=== PATIENT | female | born 1990 | race Two or more races ===

== ENCOUNTER 2018-04-21 08:50 | Outpatient (CLI) | payer OTHER | END 2018-04-21 09:47 | disposition home or self-care (01) | LOC: NST 08:50 | DX: Z34.83 Encounter for supervision of other normal pregnancy, third trimester (principal) ==

== ENCOUNTER 2018-04-24 12:47 | Inpatient (IN) | payer OTHER ==
[~2018-04-24] VITALS: Ht 152.4 cm; Wt 66.2 kg
== END 2018-04-28 13:18 | DRG 807 ==
LOC: OB/GYN 04-26 17:23 → LDR 04-26 17:23 → OB/GYN 04-26 19:07 → LDR 04-27 12:46 → OB/GYN 04-28 13:18
PROC: 10E0XZZ Delivery of Products of Conception, External Approach (ICD-10-PCS; principal; 2018-04-26)
PROC: 4A1HXCZ Monitoring of Products of Conception, Cardiac Rate, External Approach (ICD-10-PCS; 2018-04-26)
DX: O80 Encounter for full-term uncomplicated delivery (principal); Z37.0 Single live birth; Z3A.39 39 weeks gestation of pregnancy

== ENCOUNTER → 2024-07-31 | Emergency (ER) | payer OTHER ==
[~2024-07-31] VITALS: Ht 160 cm; Wt 49.4 kg
[~2024-07-31] MED LIST: IBUprofen 100 MG/5 ML-120ML ML PO STA
[2024-07-31 18:52] LABS: HEMATOCRIT 40.2 % (36.0-45.00); HEMOGLOBIN 13.4 g/dL (12.0-15.00); MEAN CELL VOLUME 89.4 fL (80.00-100.00); MEAN CORPUSCULAR HEMOGLOBIN 29.7 pg (27.00-32.0); MEAN CORPUSCULAR HGB CONC 33.2 g/dl (32.0-36.0); PLATELET COUNT 172 K/uL (150-450); RED CELL DISTRIBUTION WIDTH 12.9 % (11.5-14.5)
== END | disposition home or self-care (01) ==
LOC: ER 15:13
PROVIDERS: General Practice
DX: J10.1 Influenza due to other identified influenza virus with other respiratory manifestations (principal); Z20.822 Contact with and (suspected) exposure to COVID-19